=== PATIENT | female | born 1940 | race Caucasian/White ===

== ENCOUNTER 2016-06-07 14:00 | Observation (INO) | payer BC ==
--- NOTE | ~2016-06-07 | HP ---
History And Physical [place] [id number] [place]. [address] NAME: ROSEMARIE SAMS : 38 STATUS : DIS Deedee PAT#: [id number] AGE: 76 ADM/REG DATE : 06/07/16 MR#: [id number] REPORT SERV DATE: 06/18/16 DICTATED BY: SKIP RAYMOND DATE: 06/18/16 REPORT STATUS : Draft TRANSCRIBED BY: MODL DATE: 06/18/16 DATE OF ADMISSION: 06/07/2016 Mrs. Rosemarie Sams was inadvertently admitted to the hospital based on abnormal reading of an echocardiogram suggesting pericardial effusion. When the care was noted, she was discharged appropriately to follow up as an outpatient. PRASHANTH/CALDERON Skip Raymond M.D. / [id number] CC: Dominik Spear M.D.
--- NOTE | ~2016-06-07 | CN ---
Consultation Report [facility] [address] [place]. [address] NAME: ROSEMARIE SAMS : 38 STATUS : DIS Deedee PAT#: [id number] AGE: 76 ADM/REG DATE : 06/07/16 MR#: [id number] REPORT SERV DATE: 06/07/16 DICTATED BY: NUBIA CARSON DATE: 06/07/16 REPORT STATUS : Draft TRANSCRIBED BY: MODL DATE: 06/07/16 CONSULT REPORT DATE OF CONSULTATION: 06/07/2016 NURSE-PRACTITIONER WITH [facility] HISTORY OF PRESENT ILLNESS: This is a pleasant 76-year-old female with a history of coronary artery disease, status post CAB x4 [place] [address] Gael Lindo. She also has a history of atrial fibrillation and has been on Eliquis for over 2 years now, status post cardioversion in March [address] Spann and she has been in sinus rhythm since this time. She has been having worsening shortness of breath with minimal exertion and saw Dr. Raymond in his office today. Transthoracic echocardiogram revealed a moderate sized pericardial effusion with elevated right-sided pressures but no obvious signs of cardiac tamponade and it was believed that this pericardial effusion was the culprit behind her symptoms, and Dr. Raymond spoke with Dr. Hassan earlier today about admitting the patient and taking her for an urgent pericardial window. Upon speaking with the patient, it became clear that she has been on Eliquis with her last dose this morning. The patient is currently in no acute distress but she does report some shortness of breath with any mild exertion and some occasional shortness of breath at rest. Her O2 saturation is 97% on room air and she is not having any chest pain. Her heart rate is 70 and she is in sinus rhythm at this time. Her [id number] is with her at the bedside. PAST MEDICAL HISTORY: Coronary artery disease; paroxysmal atrial fibrillation; osteoarthritis; hypertension; type 2 diabetes mellitus; chronic systolic heart failure; and hyperlipidemia. SURGICAL HISTORY: CAB x4 in 2006; cardioversion in March 2015; cholecystectomy; appendectomy; hysterectomy; resection of rectal mass; left breast surgery; and basal cell carcinoma removed from the nose. SOCIAL HISTORY: She is and lives in [place]. She has 3 children and 4 grandchildren. She has never smoked. She has been for almost 60 years. FAMILY HISTORY: She has a brother, mother, father, and sister who have all had heart attacks. ALLERGIES: SHE REPORTS AN ALLERGY TO MOXIFLOXACIN, PENICILLIN, AND SULFA DRUGS. MEDICATIONS: Amlodipine 2.5 mg p.o. daily; aspirin 81 mg p.o. daily; atorvastatin 10 mg p.o. at bedtime; carvedilol 12.5 mg p.o. twice a day; Coq 10, 200 mg daily; Eliquis 5 mg twice daily; furosemide 1 tablet every day as needed; Geritol Complete 1 tab daily; losartan 1 tab daily; methenamine hippurate 1 g every day; omeprazole 20 mg 1 tab p.o. daily; prednisone 2 mg p.o. daily; Symbicort inhaler 160/4.5 mcg 1 puff inhaled twice per day; 500 mg of Tylenol Consultation Report [id number] [place]. [address] NAME: ROSEMARIE SAMS : 38 STATUS : DIS Deedee PAT#: [id number] AGE: 76 ADM/REG DATE : 06/07/16 MR#: [id number] REPORT SERV DATE: 06/07/16 DICTATED BY: NUBIA CARSON DATE: 06/07/16 REPORT STATUS : Draft TRANSCRIBED BY: CALDERON DATE: 06/07/16 twice daily as needed; vitamin B12 500 mg p.o. daily; and vitamin D3 5000 units p.o. daily. REVIEW OF SYSTEMS: A 10-point review of systems was obtained and is negative other than HPI. PHYSICAL EXAMINATION: VITAL SIGNS: From today, temperature 98 degrees, heart rate 76, in sinus rhythm, blood pressure 157/67, respiratory rate 16, and O2 saturation 97% on room air. GENERAL: Pleasant, thin elderly female, in no acute distress. PSYCHIATRIC: Normal mood, talkative, pleasant. NEUROLOGIC: Alert and oriented x3. Pupils are equal, round, and reactive to light and accommodation. She has equal strength bilaterally upper extremities and lower extremities. HEENT: Head is normocephalic and atraumatic. Sclerae clear. Nose midline with no abnormalities. Good dentition overall. Ears with no abnormality. NECK: Supple with no thyromegaly or lymphadenopathy. LUNGS: Clear to auscultation bilaterally with normal effort. CARDIAC: S1, S2 with no murmurs, rubs, or gallops. ABDOMEN: Soft, flat, nontender with active bowel sounds. EXTREMITIES: Free of cyanosis, clubbing, no evidence of edema. Pedal pulses are present and equal bilaterally. LABORATORY DATA: From today, sodium 140, potassium 4.2, chloride 106, bicarbonate 26, BUN 19, creatinine 0.8, and glucose 124. ASSESSMENT AND PLAN: This is a pleasant 76-year-old female who has a history of coronary artery disease, status post CABG x4 in 2006, also history of atrial fibrillation status post cardioversion in March 2015. She has been on Eliquis for over 2 years with her last dose this morning. She has been having worsening shortness of breath and dyspnea on exertion, came in to see Dr. Raymond today with transthoracic echocardiogram showing moderate pericardial effusion without any obvious signs of cardiac tamponade. The initial plan was to admit her and send her for an emergent pericardial window but due to the fact that she is not having any major symptoms at rest, she is oxygenating well with stable vital signs, and considering since her last dose of Eliquis was this morning, we will need to wait for Eliquis washout. We will review imaging and await CT scan of the chest and plan for surgery most likely on Saturday. We would like to thank you for the consultation. We look forward to helping you to take care of Ms. Rosemarie aSms. Please let us know if we can be of any further assistance. SETH/CALDERON Nubia Carson NP Consultation Report [place] [id number] [facility] [place] [place]. [address] NAME: ROSEMARIE SAMS : 38 STATUS : DIS Deedee PAT#: [id number] AGE: 76 ADM/REG DATE : 06/07/16 MR#: [id number] REPORT SERV DATE: 06/07/16 DICTATED BY: NUBIA CARSON DATE: 06/07/16 REPORT STATUS : Draft TRANSCRIBED BY: CALDERON DATE: 06/07/16 / [id number] CC: Skip Raymond M.D. Irena Soler M.D.
[2016-06-07 12:31] LABS: A/G RATIO 1.4 (0.7-1.9); ALBUMIN 3.8 G/DL (3.5-5.0); BUN (BLOOD UREA NITROGEN) 16 MG/DL (6-23); CHLORIDE, SERUM 104 MMOL/L (96-112); CO2 (CARBON DIOXIDE) 26 MMOL/L (24-34); CREATININE 0.81 MG/DL (0.55-1.02); GFR AFRICAN AMERICAN 81 ML/MIN (>=60); GFR NON AFRICAN AMERICAN 70 ML/MIN (>=60); GLOBULIN 2.8 G/DL (2.5-4.1); GLUCOSE, SERUM 105 MG/DL (60-99); POTASSIUM, SERUM 3.7 MMOL/L (3.5-5.3); SGOT(AST) 16 U/L (5-40); SGPT(ALT) 19 U/L (5-65); SODIUM, SERUM 139 MMOL/L (135-148); TOTAL BILIRUBIN 0.7 MG/DL (0-1.2); TOTAL PROTEIN 6.6 G/DL (6.0-8.5); ULTRASENSITIVE TSH 0.737 MCIU/ML (0.358-3.740)
[2016-06-07 12:33] LABS: ALKALINE PHOSPHATASE 61 U/L (45-117); CALCIUM, SERUM 8.8 MG/DL (8.5-10.4)
[~2016-06-07 14:00] MED LIST: ADVAIR100 INH; ASAB PO; B12250T PO; CALTRA600D PO; CIP5 PO; CITRACAL PO; CO Q-10200 MG PO; COQ-1010 MG OR; COQ-10200 MG OR; CORDARONE PO; COREG12 PO; COREG25 PO; COREG6 PO; COZAAR100 MG PO; CYANO1000T PO; ELIQUIS 5 MG TAB5 MG PO; FL250 PO; FLAG500TAB PO; GERITOL COMPLETE; IVVIBRA PO; KLOR-CON M2020 MEQ PO; L20 PO; L40 PO; LIPITOR10 PO; MULTIPLE VIT PO; MULTIVIT/MIN PO; MULTIVITAMI1 PO; NORV25 PO; P1 PO; P5 PO; PEP20 PO; PR12.5 PO; PRILO PO; SYMBICORT 160/41 INH INH; VITAMIN B-121000 MC1 PO; VITAMIN B-121000 MC1 SL; VITAMIN D31000 UNIT PO; ZOCOR20 PO; [UNRECOGNIZED DRUG - OTHER] PO
[2016-06-07 15:22] LABS: A/G RATIO 1.2 (0.7-1.9); ALBUMIN 3.6 G/DL (3.5-5.0); ALKALINE PHOSPHATASE 58 U/L (45-117); BUN (BLOOD UREA NITROGEN) 19 MG/DL (6-23); CALCIUM, SERUM 8.5 MG/DL (8.5-10.4); CHLORIDE, SERUM 106 MMOL/L (96-112); CO2 (CARBON DIOXIDE) 26 MMOL/L (24-34); GFR AFRICAN AMERICAN 82 ML/MIN (>=60); GFR NON AFRICAN AMERICAN 71 ML/MIN (>=60); GLOBULIN 2.9 G/DL (2.5-4.1); GLUCOSE, SERUM 124 MG/DL (60-99); POTASSIUM, SERUM 4.2 MMOL/L (3.5-5.3); SGOT(AST) 15 U/L (5-40); SGPT(ALT) 18 U/L (5-65); SODIUM, SERUM 140 MMOL/L (135-148); TOTAL BILIRUBIN 0.6 MG/DL (0-1.2); TOTAL PROTEIN 6.5 G/DL (6.0-8.5)
== END 2016-06-07 18:00 | disposition home or self-care (01) ==
LOC: 5NO 14:00
PROVIDERS: Internal Medicine Cardiovascular Disease
DX: I11.0 Hypertensive heart disease with heart failure (principal); I50.22 Chronic systolic (congestive) heart failure; M19.90 Unspecified osteoarthritis, unspecified site; E78.2 Mixed hyperlipidemia; I48.0 Paroxysmal atrial fibrillation; I25.10 Atherosclerotic heart disease of native coronary artery without angina pectoris; E11.9 Type 2 diabetes mellitus without complications; M35.3 Polymyalgia rheumatica; Z95.1 Presence of aortocoronary bypass graft; Z88.0 Allergy status to penicillin; Z88.1 Allergy status to other antibiotic agents; Z88.2 Allergy status to sulfonamides; Z88.8 Allergy status to other drugs, medicaments and biological substances; Z79.82 Long term (current) use of aspirin; Z79.899 Other long term (current) drug therapy; Z79.01 Long term (current) use of anticoagulants; Z90.710 Acquired absence of both cervix and uterus; Z90.49 Acquired absence of other specified parts of digestive tract
CPT/HCPCS: 36415; 80053; 84443; 93005; G0378